=== PATIENT | female | born 1985 | race Caucasian/White ===

== ENCOUNTER 2019-11-20 19:12 | Emergency (ER) | payer OTHER ==
[~2019-11-20] VITALS: Ht 157.5 cm; Wt 98.9 kg
--- NOTE | 2019-11-20 19:16 | PHYS DOC ---
General Adult HPI: HPI: ".. I stepped on a screw in.. the garage.. I was wearing flip flops.. I clean the puncture really well.. you can 't hardly see the spot on my little toe.. ..but I got worried .. that I needed a tetanus shot..." Patient is a 34 year old female who presents with above hx and injury to my Rt foot fifth toe plantar side. Patient has an almost nonvisible puncture area on fifth toe. Wound area does not appear to have fully punctured through skin. No obvious debris at puncture area. Pt. concerned tetanus is over 10 yrs. however on further interview with patient did receive a whooping cough vaccination with her last 2 years ago. Patient denies any history immunosuppression. Patient denies any specific ill contacts. No recent travel outside [facility]. Patient normally follows at [facility]. Review of Systems: Review of Systems: Constitutional: Denies fever or chills Eyes: Denies change in visual acuity HENT: Denies nasal congestion or sore throat Respiratory: Denies cough or shortness of breath Cardiovascular: Denies chest pain or edema GI: Denies abdominal pain, nausea, vomiting, bloody stools or diarrhea : Denies dysuria Musculoskeletal: Denies back pain or joint pain Integument: Denies rash. Complains of puncture wound right fifth toe Neurologic: Denies headache, focal weakness or sensory changes Endocrine: Denies polyuria or polydipsia Lymphatic: Denies swollen glands Psychiatric: Denies depression or anxiety Heart Score: Risk Factors: Risk Factors: DM, Current or recent (<one month) smoker, HTN, HLP, family history of CAD, obesity. Risk Scores: Score 0 - 3: 2.5% MACE over next 6 weeks - Discharge Home Score 4 - 6: 20.3% MACE over next 6 weeks - Admit for Clinical Observation Score 7 - 10: 72.7% MACE over next 6 weeks - Early Invasive Strategies Family History: Family History: Noncontributory to presentation Current Medications: Current Meds: See nursing for home meds Allergies: Allergies: Reports allergy to oxycodone and tramadol Physical Exam: PE: Constitutional: , no acute distress, non-toxic appearance. [] HENT: Normocephalic, atraumatic, bilateral external ears normal, oropharynx moist, no oral exudates, nose normal. [] Eyes: PERRLA, EOMI, conjunctiva normal, no discharge. [] Neck: Normal range of motion, no tenderness, supple, no stridor. [] Cardiovascular:Heart rate regular rhythm, no murmur [] Lungs & Thorax: Bilateral breath sounds clear to auscultation [] Abdomen: Bowel sounds normal, soft, no tenderness, no masses, no pulsatile masses. [] Skin: Warm, dry, no erythema, no rash. [] Small puncture wound to fifth toe right foot Back: No tenderness, no CVA tenderness. [] Extremities: No tenderness, no cyanosis, no clubbing, ROM intact, no edema. [] Neurologic: Alert and oriented X 3, normal motor function, normal sensory function, no focal deficits noted. [] Psychologic: Affect anxious, judgement normal, mood normal. [] EKG: EKG: [] Radiology/Procedures: Radiology/Procedures: [] Course & Med Decision Making: Course & Med Decision Making Pertinent Labs and Imaging studies reviewed. (See chart for details) Patient is soak foot and salt water or Epsom salt water 4 times a day. Monitor closely for infection. With history of receiving "whooping cough' ' vaccination with last 2 years ago, feel patient has had updated tetanus. Patient return if any concerns. Patient follow-up primary care. 1. Puncture wound right fifth toe [] Dragon Disclaimer: Draghector Disclaimer: This electronic medical record was generated, in whole or in part, using a voice recognition dictation system. Departure Departure: Disposition: 01 HOME/RESIDENCE PRIOR TO ADM Condition: STABLE Referrals: PCP,UNKNOWN (PCP) [facility] Disclaimer This chart was dictated in whole or in part using Voice Recognition software in a busy, high-work load, and often noisy Emergency Department environment. It may contain unintended and wholly unrecognized errors or omissions. HERNANDO MCDANIEL MD November 20, 2019 19:16
[2019-11-20 19:26] VITALS: BP 140/87
[2019-11-20] MEDS ORDERED: DIPH,PERTUSS(ACELL),TET VAC/PF 0.5 ML SYRINGE. VAX IM ONE (19:45)
== END 2019-11-20 19:52 | disposition home or self-care (01) ==
LOC: ER 19:12
DX: S91.134A Puncture wound without foreign body of right lesser toe(s) without damage to nail, initial encounter (principal); R05 Cough; Z88.5 Allergy status to narcotic agent; W18.39XA Other fall on same level, initial encounter; Y93.89 Activity, other specified; Y92.89 Other specified places as the place of occurrence of the external cause; Y99.8 Other external cause status
CPT/HCPCS: 99281